=== PATIENT | male | born 1995 | race Caucasian/White ===

== ENCOUNTER 2022-01-15 13:13 | Emergency (ER) | payer OTHER ==
[2022-01-15 14:01] LABS: BASOPHIL 0.1 % (0-2); EOSINOPHIL 0 % (0-5); HCT 43.2 % (42.0-52.0); LYMPHOCYTE 4.8 % (15-48); MCH 26.9 pg (25.0-31.0); MCHC 32.4 g/dL (32.0-36.0); MCV 82.9 fL (78.0-100.0); MONOCYTE 2.5 % (0-12); MPV 8.9 fL (6.0-9.5); NEUTROPHIL 92.3 % (41-80); NRBC 0; PLT 348 K/uL (150-400); RBC 5.21 M/uL (4.70-6.00)
[2022-01-15 14:09] LABS: WBC 10.1 K/uL (4.0-10.5)
[2022-01-15 15:08] LABS: ALKALINE PHOSHATASE 104 U/L (46-116); ALT 21 U/L (16-63); AST 17 U/L (15-37); BILIRUBIN - TOTAL 0.3 mg/dL (0.2-1.0); BUN 11 mg/dL (7-18); BUN/CREAT RATIO (CALC) 19.3 RATIO; CHLORIDE 100 mmol/L (98-107); CO2 (BICARBONATE) 24 mmol/L (21-32); CREATININE 0.57 mg/dL (0.67-1.17); GLOBULIN (CALCULATION) 4.7 g/dL; GLUCOSE 115 mg/dL (74-106); POTASSIUM 3.4 mmol/L (3.5-5.1); TOTAL PROTEIN 8.7 g/dL (6.4-8.2)
[2022-01-15 16:53] LABS: BILIRUBIN 2+ mg/dL (NEGATIVE); BLOOD NEGATIVE Ery/uL (NEGATIVE); CLARITY CLEAR (CLEAR); COLOR YELLOW (YELLOW); GLUCOSE (U) NORMAL (NORMAL); LEUKOCYTES NEGATIVE Leu/uL (NEGATIVE); NITRITE NEGATIVE (NEGATIVE); PROTEIN 1+ mg/dL (NEGATIVE); UROBILINOGEN 0.2 mg/dL (0.2-1.0)
[2022-01-15 16:58] LABS: AMPHETAMINES NEGATIVE (NEGATIVE); BARBITURATES NEGATIVE (NEGATIVE); ECSTASY (MDMA) NEGATIVE (NEGATIVE); MARIJUANA (THC) POSITIVE (NEGATIVE); METHADONE NEGATIVE (NEGATIVE); OPIATES NEGATIVE (NEGATIVE)
[2022-01-15 16:59] LABS: OXYCODONE NEGATIVE (NEGATIVE)
[2022-01-15 17:07] LABS: BACTERIA TRACE; SQUAMOUS EPITHELIAL CELLS RARE
== END 2022-01-15 16:58 | disposition home or self-care (01) ==
LOC: FER 13:13
PROVIDERS: Nurse Practitioner Family
DX: R10.84 Generalized abdominal pain (principal)
CPT/HCPCS: 36415; 80053; 80305; 81001; 85025; G0480; J1885; J2405; J7030; Q9967